=== PATIENT | female | born 1955 | race Caucasian/White ===

== ENCOUNTER 2024-01-01 16:29 | Outpatient (CLI) | payer MEDICARE | END 2024-01-01 16:30 | disposition home or self-care (01) | LOC: NAV RAD 16:29 | PROVIDERS: ATTEND Family Medicine | DX: Z01.818 Encounter for other preprocedural examination (principal) | CPT/HCPCS: 71046 ==

== ENCOUNTER 2024-01-18 11:36 | Outpatient (CLI) | payer MEDICARE | END 2024-01-18 11:37 | disposition home or self-care (01) | LOC: NAV CT 11:36 | PROVIDERS: ATTEND Orthopaedic Surgery | DX: M19.072 Primary osteoarthritis, left ankle and foot (principal); Z98.1 Arthrodesis status ==